=== PATIENT | male | born 1995 | race Hispanic/Latino ===

== ENCOUNTER 2020-08-18 05:01 | Emergency (ER) | payer SELFPAY ==
[~2020-08-18] VITALS: Ht 175.3 cm; Wt 115.7 kg
[2020-08-18] MEDS ORDERED: FAMOTIDINE 20 MG/2 ML VIAL IV STA (05:31)
[2020-08-18] MEDS ORDERED: METHYLPREDNISOLONE SOD SUCC 125 MG/2ML VIAL ONE (05:35)
[2020-08-18] MEDS ORDERED: SODIUM CHLORIDE 0.9% 1000ML 1,000 ML ONE (05:35)
[2020-08-18] MEDS ORDERED: DIPHENHYDRAMINE HCL INJ 50 MG/ML VIAL ONE (05:36)
[2020-08-18] MEDS ORDERED: FAMOTIDINE 20 MG/2 ML VIAL IV ONE (05:36)
[2020-08-18] MEDS ORDERED: METHYLPREDNISOLONE SOD SUCC 125 MG/2ML VIAL IV ONE (05:45)
[2020-08-18] MEDS ORDERED: DIPHENHYDRAMINE HCL INJ 50 MG/ML VIAL IV ONE (05:45)
[2020-08-18] MEDS ORDERED: SODIUM CHLORIDE 0.9% 1000ML 1,000 ML IV SCH (05:45)
[2020-08-18] MEDS ORDERED: PREDNISONE20 MG PO (06:40)
[2020-08-18] MEDS ORDERED: FAMOTIDINE40 MG PO (06:43)
[2020-08-18] MEDS ORDERED: EPINEPHRIN0.3 MG/0.3 IM (06:47)
[2020-08-18 07:00] VITALS: BP 139/71
== END 2020-08-18 07:00 | disposition home or self-care (01) ==
LOC: FSED 05:25
DX: L50.0 Allergic urticaria (principal); T39.315A Adverse effect of propionic acid derivatives, initial encounter; Y92.019 Unspecified place in single-family (private) house as the place of occurrence of the external cause
CPT/HCPCS: 96374; 96375; 96376; 99283; J1200; J2930; J7030